=== PATIENT | female | born 1950 | race Two or more races ===

== ENCOUNTER 2018-01-06 07:30 | Outpatient (CLI) | payer OTHER | END 2018-01-06 07:52 | disposition home or self-care (01) | LOC: NUCLEAR 07:30 → EDBD 07:30 → NUCLEAR 07:52 | DX: I25.10 Atherosclerotic heart disease of native coronary artery without angina pectoris (principal) | CPT/HCPCS: 78452; 93017; A9500; J0153 ==

== ENCOUNTER 2018-03-05 16:28 | Inpatient (IN) | payer OTHER ==
[~2018-03-05] VITALS: Ht 162.6 cm; Wt 108.9 kg
[2018-03-05] MEDS ORDERED: COZAAR50 MG PO (16:39)
[2018-03-05] MEDS ORDERED: ATENOLOL100 MG PO (16:39)
[2018-03-05] MEDS ORDERED: GLIMEPIRIDE4 MG PO (16:40)
[2018-03-05] MEDS ORDERED: ISOSORBIDE DINI30 MG PO (16:40)
== END 2018-03-07 03:50 | disposition designated cancer center or children's hospital (05) | DRG 280 ==
LOC: ER 16:28 → ICU-2 03-06 12:13
PROC: B246ZZZ Ultrasonography of Right and Left Heart (ICD-10-PCS; principal; 2018-03-06)
DX: I21.4 Non-ST elevation (NSTEMI) myocardial infarction (principal); I50.33 Acute on chronic diastolic (congestive) heart failure; E11.42 Type 2 diabetes mellitus with diabetic polyneuropathy; E11.65 Type 2 diabetes mellitus with hyperglycemia; I11.0 Hypertensive heart disease with heart failure

== ENCOUNTER 2018-04-14 08:44 | Outpatient (CLI) | payer OTHER ==
[~2018-04-14 08:44] MED LIST: ATENOLOL100 MG PO; COZAAR50 MG PO; GLIMEPIRIDE4 MG PO; ISOSORBIDE DINI30 MG PO
== END 2018-04-14 08:52 | disposition home or self-care (01) ==
LOC: MAMO-SONO 08:44 → EDBD 08:44 → MAMO-SONO 08:45
DX: Z12.31 Encounter for screening mammogram for malignant neoplasm of breast (principal); Z87.898 Personal history of other specified conditions; N60.11 Diffuse cystic mastopathy of right breast; N60.12 Diffuse cystic mastopathy of left breast

== ENCOUNTER 2019-07-29 10:11 | Outpatient (CLI) | payer OTHER | END 2019-07-29 10:12 | disposition home or self-care (01) | LOC: RAD 10:11 | DX: M14.86 Arthropathies in other specified diseases classified elsewhere, knee (principal) ==

== ENCOUNTER 2023-02-26 15:15 | Emergency (ER) | payer OTHER ==
[~2023-02-26] VITALS: Ht 162.6 cm; Wt 111.6 kg
[2023-02-26] MEDS ORDERED: JANUMET 50-5001 EACH PO (15:59)
[2023-02-26] MEDS ORDERED: ATORVASTATIN CA40 MG PO (16:00)
[2023-02-26] MEDS ORDERED: NEURONTIN600 M1 PO (16:00)
[2023-02-26] MEDS ORDERED: GLUMETZA500 MG PO (16:00)
== END 2023-02-26 20:32 | disposition home or self-care (01) ==
LOC: ER 15:15
DX: L97.509 Non-pressure chronic ulcer of other part of unspecified foot with unspecified severity (principal); L03.116 Cellulitis of left lower limb; G62.9 Polyneuropathy, unspecified; E11.9 Type 2 diabetes mellitus without complications; Z79.84 Long term (current) use of oral hypoglycemic drugs; I10 Essential (primary) hypertension; I50.9 Heart failure, unspecified; Z20.822 Contact with and (suspected) exposure to COVID-19

== ENCOUNTER 2023-04-10 09:31 | Inpatient (IN) | payer OTHER ==
[~2023-04-10] VITALS: Ht 157.5 cm; Wt 113.4 kg
[~2023-04-10 09:31] MED LIST changes: +ATORVASTATIN CA40 MG PO; +GLUMETZA500 MG PO; +JANUMET 50-5001 EACH PO; +NEURONTIN600 M1 PO
[2023-04-10] MEDS ORDERED: FUROSEMIDE20 MG PO (10:24)
[2023-04-22] MEDS ORDERED: INTESTINEX680 M1 PO (17:47)
== END 2023-04-22 18:06 | disposition home or self-care (01) | DRG 603 ==
LOC: ER 09:31 → MEDI 18:42
PROVIDERS: ADMIT Internal Medicine; ATTEND Internal Medicine
PROC: B54DZZZ Ultrasonography of Bilateral Lower Extremity Veins (ICD-10-PCS; principal; 2023-04-10)
PROC: 02HV33Z Insertion of Infusion Device into Superior Vena Cava, Percutaneous Approach (ICD-10-PCS; 2023-04-11)
PROC: B24BYZZ Ultrasonography of Heart with Aorta using Other Contrast (ICD-10-PCS; 2023-04-18)
DX: L03.115 Cellulitis of right lower limb (principal); I50.30 Unspecified diastolic (congestive) heart failure; L97.919 Non-pressure chronic ulcer of unspecified part of right lower leg with unspecified severity; B49 Unspecified mycosis; Z68.42 Body mass index [BMI] 45.0-49.9, adult; D64.9 Anemia, unspecified; E11.65 Type 2 diabetes mellitus with hyperglycemia; G47.33 Obstructive sleep apnea (adult) (pediatric); I83.019 Varicose veins of right lower extremity with ulcer of unspecified site; L97.509 Non-pressure chronic ulcer of other part of unspecified foot with unspecified severity; G62.9 Polyneuropathy, unspecified; E11.22 Type 2 diabetes mellitus with diabetic chronic kidney disease; N18.2 Chronic kidney disease, stage 2 (mild); J44.9 Chronic obstructive pulmonary disease, unspecified; E66.01 Morbid (severe) obesity due to excess calories; B95.2 Enterococcus as the cause of diseases classified elsewhere; Z79.4 Long term (current) use of insulin

== ENCOUNTER 2023-11-05 10:59 | Emergency (ER) | payer OTHER ==
[~2023-11-05] VITALS: Ht 162.6 cm; Wt 104.3 kg
[~2023-11-05 10:59] MED LIST changes: +FUROSEMIDE20 MG PO; +INTESTINEX680 M1 PO
[2023-11-05] MEDS ORDERED: NORFLEX100MG PO (12:10)
[2023-11-05] MEDS ORDERED: DICLOFENAC SODI75 MG PO (12:10)
== END 2023-11-05 12:41 | disposition home or self-care (01) ==
LOC: ER 10:59
DX: M54.9 Dorsalgia, unspecified (principal); M43.16 Spondylolisthesis, lumbar region
CPT/HCPCS: 72070; 72100; 96372; 99284; J1885; J2360

== ENCOUNTER 2023-12-18 18:32 | Emergency (ER) | payer OTHER ==
[~2023-12-18] VITALS: Ht 162.6 cm; Wt 101.6 kg
[~2023-12-18 18:32] MED LIST changes: +DICLOFENAC SODI75 MG PO; +NORFLEX100MG PO
== END 2023-12-18 23:04 | disposition home or self-care (01) ==
LOC: ER 18:34
DX: S01.81XA Laceration without foreign body of other part of head, initial encounter (principal); W18.39XA Other fall on same level, initial encounter; Y93.89 Activity, other specified; Y92.018 Other place in single-family (private) house as the place of occurrence of the external cause; E11.9 Type 2 diabetes mellitus without complications; Z79.84 Long term (current) use of oral hypoglycemic drugs; I10 Essential (primary) hypertension

== ENCOUNTER 2024-01-31 11:36 | Inpatient (IN) | payer OTHER ==
[~2024-01-31] VITALS: Ht 162.6 cm; Wt 104.3 kg
[2024-01-31] MEDS ORDERED: ANTI-ITCH28 G1 TP (12:21)
--- NOTE | 2024-01-31 12:22 | NUR ---
PTE FEMENINA DE 73 YRS LLEGA EN AMBULANCIA NO RESPONDE AL MOMENTO. FAMILIAR ALEGA QUE LA ENCONTRARON EN EL THAIS DESMALLADA SIN RESPONDER. SE LE LINNETTE S/V Y SE ACOMODE NE UNIDAD DE CRITICO CONCETADA A MONITOR CARDIACO Y CANULA NASAL. SE LE PRESENTA PTE A LA CUAL ORDENA TRATAMEINTO.
[2024-01-31 12:33] LABS: HEMATOCRIT 34.3 % (36.0-45.00); HEMOGLOBIN 11.2 g/dL (12.0-15.00); MEAN CELL VOLUME 92.5 fL (80.00-100.00); MEAN CORPUSCULAR HEMOGLOBIN 30.2 pg (27.00-32.0); MEAN CORPUSCULAR HGB CONC 32.7 g/dl (32.0-36.0); PLATELET COUNT 263 K/uL (150-450); RED BLOOD COUNT 3.71 M/uL (4.00-6.00); RED CELL DISTRIBUTION WIDTH 16.5 % (11.5-14.5)
[2024-01-31 12:44] LABS: ABG PH 7.445 (7.35-7.45); ABG PO2 115.9 mmHg (80-100); ABG pCO2 36.5 mmHg (35-45); BASE EXCESS 0.8 mmol/l; BICARBONATE 24.5 mmol/l (23-25); SaO2 98.7 %; Tco2 25.6 mmol/l; allen test SATISFACTORY; puncture site RADIAL LEFT
[2024-01-31 12:45] LABS: o2 21 %
--- NOTE | 2024-01-31 12:47 | NUR ---
SE RECIBE PACIENTE EN STORM #3 AREA DE ICU 2 A LAS 12:10PM, MIS PENA RN RECIBE LA MISMA CONECTA A MONITOR Y LE COLOCA CANULA NASAL. ESTA JOEL MUIESTRAS Y CANALIZA EN MANO DERECHA CON MEDIDAS ASEPTICAS CORRESPONDIENTES. ESTA ORIENTA A FAMILIAR SOBRE TRATAMIENTO ANDRIA ORDEN MEDICA. REFIERE ENTENDER. SE CANALIZA EN BRAZO IZQ PARA DOBLE ACCESO VENOSO. SE INSERTA SONDA URAINA CON MEDIDAS ASEPTICAS Y SE JOEL MUESTRA DE U/A, PACIENTE DRENADO ORINA AMARILLO JERRI POR SANTANA PATENTE A GRAVEDAD. PERSONAL DE TERAPIA RESPIRATORIA REALIZA ABG. BARANDAS ELEVADAS POR MARTIN SEGURIDAD. SE MONITOREA POR CAMBIOS SIGNIFICATIVOS.
[2024-01-31 12:49] LABS: INR 0.99; PARTIAL THROMBOPLASTIN TIME 24.9 SECONDS (22.0-34.0); PROTHROMBIN TIME 10.4 SECONDS (9.0-11.5)
[2024-01-31 13:14] LABS: PH,URINE 5.5 (5.0-8.0); URINE APPEARANCE Clear; URINE BILIRRUBIN Negative (NEGATIVE); URINE BLOOD Negative; URINE COLOR Yellow; URINE GLUCOSE Negative (NEGATIVE); URINE LEUKOCYTE Small; URINE NITRATE Negative; URINE PROTEIN 30 (NEGATIVE); URINE UROBILINOGEN 0.2 E.U./dl
[2024-01-31 13:18] LABS: URINE BACTERIA 279.7 uL (0.0-1933); URINE EPITHELIAL CELLS 36.1 uL (0.0-38.8); URINE RBC 13.6 uL (0.0-20.8); URINE WBC 66.1 uL (0.0-23.2)
[2024-01-31 13:46] LABS: BILIRUBIN TOTAL 0.35 mg/dL (0.3-1.2); CALCIUM 9.5 mg/dL (8.5-10.1); CREATININE SERUM 1.08 mg/dL (0.55-1.02); GFR 49.87; GLOBULINA 3.8 G/DL (2.4-3.5); MAGNESIUM 2.1 mg/dL (1.8-2.4); POTASSIUM 4.15 mEq/L (3.5-5.1); TOTAL PROTEIN 6.8 gm/dL (6.4-8.2)
[2024-01-31 14:06] LABS: URINE YEAST NEGATIVE /hpf
--- NOTE | 2024-01-31 15:00 | NUR ---
SE RECIBE A PTE ALERTA Y ORIENTADA EN PERSONA EN CAMA BAJA Y BARANDAS ELEVADAS CONECTADA A MONITOR CARDIACO. SE OBSERVA CANULA NASAL A 3LT/HR. SE OBSERVAN EXTREMIDADES SUPERIOIRES CON HEMATOMAS DEBIDO A SER PINCHADA PARA INTENTAR CANALIZARLA. SE OBSERVA EN MANO IZQUIERDA SALYN LOCK #20 PATENTE EDIL DE EDEMA Y ERITEMA. SE OBSERVA ABDOMEN DISTENDIDO AL TACTO. SE OBSERVA SANTANA CATETHER PATENTE BAJANDO A GRAVEDAD. SE OBSERVAN EXTREMIDADES INFERIOIRES LIBRES DE EDEMA Y ERITEMA.
[2024-01-31] MEDS ORDERED: 0.9 % SODIUM CHLORIDE 1,000 ML IV SCH (17:15)
[2024-01-31] MEDS ORDERED: MORPHINE SULFATE 4 MG/ML CARTRIDGE IV ONE (17:15)
[2024-01-31] MEDS ORDERED: CLOPIDOGREL BISULFATE 75 MG TABLET PO SCH (17:19)
[2024-01-31] MEDS ORDERED: LOSARTAN POTASSIUM 50 MG TABLET PO SCH (17:19)
[2024-01-31] MEDS ORDERED: ATORVASTATIN CALCIUM 40 MG TABLET PO SCH (17:19)
[2024-01-31] MEDS ORDERED: INSULIN LISPRO 1,000 UNIT/10 ML UNITS SUBCUTANEO PRN (17:30)
[2024-01-31] MEDS ORDERED: DEXTROSE 50 % IN WATER 0.5 G/ML DISP.SYRIN IV PRN (17:30)
[2024-01-31] MEDS ORDERED: PIPERACILLIN/TAZOBACTAM SODIUM 3.375 GM in DEXTROSE 5 % IN WATER 100 ML IV SCH (18:00)
[2024-02-01] MEDS ORDERED: DIPHENHYDRAMINE HCL 50 MG/ML VIAL 1ML IV STA (00:19)
[2024-02-01 07:41] LABS: CHOL HDL RATIO 3.9 (0-5.0); TSH 2.63 uIU/mL (0.358-3.74)
[2024-02-01] MEDS ORDERED: ISOSORBIDE MONONITRATE 30 MG TABLET PO SCH (09:00)
[2024-02-01] MEDS ORDERED: FUROsemide 20 MG/2 ML VIAL IV SCH (09:00)
[2024-02-01] MEDS ORDERED: TRAMADOL HCL 50 MG TABLET PO PRN (10:30)
[2024-02-01] MEDS ORDERED: CLOTRIMAZOLE 10 MG TROCHE MM SCH (13:00)
[2024-02-01] MEDS ORDERED: GABAPENTIN 600 MG TABLET PO SCH (17:00)
[2024-02-02] MEDS ORDERED: LACTOBACILLUS ACIDOPHILUS 1 CAP CAP PO SCH (13:31)
[2024-02-03 05:42] LABS: HEMATOCRIT 32.5 % (36.0-45.00); MEAN CELL VOLUME 93.9 fL (80.00-100.00); MEAN CORPUSCULAR HEMOGLOBIN 31.2 pg (27.00-32.0); MEAN CORPUSCULAR HGB CONC 33.3 g/dl (32.0-36.0); PLATELET COUNT 214 K/uL (150-450); RED BLOOD COUNT 3.46 M/uL (4.00-6.00); RED CELL DISTRIBUTION WIDTH 16.4 % (11.5-14.5)
[2024-02-03 05:45] LABS: HEMOGLOBIN 10.8 g/dL (12.0-15.00)
[2024-02-03 05:58] LABS: ERYTHROCYTE SEDIMENTATION RATE 106 mm/hr
[2024-02-03 06:07] LABS: ALBUMIN 2.4 gm/dL (3.4-5.0); BILIRUBIN TOTAL 0.6 mg/dL (0.3-1.2); CALCIUM 8.6 mg/dL (8.5-10.1); CREATININE SERUM 1.28 mg/dL (0.55-1.02); GFR 40.99; GLOBULINA 3.4 G/DL (2.4-3.5); POTASSIUM 3.28 mEq/L (3.5-5.1); TOTAL PROTEIN 5.8 gm/dL (6.4-8.2)
[2024-02-03 06:27] LABS: C-REACTIVE PROTEIN 10.1 MG/DL (0.00-0.29)
[2024-02-03] MEDS ORDERED: POTASSIUM CHLORIDE IN WATER 100 ML IV ONE (08:15)
[2024-02-03] MEDS ORDERED: POTASSIUM CHLORIDE 10 MEQ CAPSULE PO SCH (18:45)
[2024-02-04] MEDS ORDERED: ORPHENADRINE CITRATE 100 MG TABLET PO PRN (23:00)
[2024-02-06 08:15] LABS: HEMATOCRIT 32.7 % (36.0-45.00); HEMOGLOBIN 10.9 g/dL (12.0-15.00); MEAN CELL VOLUME 92.7 fL (80.00-100.00); MEAN CORPUSCULAR HEMOGLOBIN 30.7 pg (27.00-32.0); MEAN CORPUSCULAR HGB CONC 33.2 g/dl (32.0-36.0); PLATELET COUNT 216 K/uL (150-450); RED BLOOD COUNT 3.53 M/uL (4.00-6.00); RED CELL DISTRIBUTION WIDTH 16.5 % (11.5-14.5)
[2024-02-06] MEDS ORDERED: CLOPIDOGREL BIS75 MG PO (17:03)
[2024-02-06] MEDS ORDERED: ISOSORBIDE MONO30 MG PO (17:03)
[2024-02-06] MEDS ORDERED: NEURONTIN600 MG PO (17:03)
[2024-02-06] MEDS ORDERED: LASIX20 MG PO (17:03)
[2024-02-06] MEDS ORDERED: COZAAR100 MG PO (17:03)
[2024-02-06] MEDS ORDERED: LIPITOR40 M1 PO (17:03)
== END 2024-02-06 17:42 | disposition home or self-care (01) | DRG 64 ==
LOC: ER 11:36 → MEDI 18:15
PROVIDERS: General Practice; Internal Medicine Infectious Disease; ADMIT Internal Medicine; ATTEND Internal Medicine
PROC: 4A12X4Z Monitoring of Cardiac Electrical Activity, External Approach (ICD-10-PCS; principal; 2024-01-31)
PROC: BW24ZZZ Computerized Tomography (CT Scan) of Chest and Abdomen (ICD-10-PCS; 2024-01-31)
PROC: B020ZZZ Computerized Tomography (CT Scan) of Brain (ICD-10-PCS; 2024-01-31)
PROC: B030ZZZ Magnetic Resonance Imaging (MRI) of Brain (ICD-10-PCS; 2024-01-31)
PROC: BW21ZZZ Computerized Tomography (CT Scan) of Abdomen and Pelvis (ICD-10-PCS; 2024-01-31)
PROC: B24BYZZ Ultrasonography of Heart with Aorta using Other Contrast (ICD-10-PCS; 2024-01-31)
PROC: B345ZZZ Ultrasonography of Bilateral Common Carotid Arteries (ICD-10-PCS; 2024-01-31)
PROC: B54DZZZ Ultrasonography of Bilateral Lower Extremity Veins (ICD-10-PCS; 2024-02-03)
DX: I63.9 Cerebral infarction, unspecified (principal); J69.0 Pneumonitis due to inhalation of food and vomit; G45.9 Transient cerebral ischemic attack, unspecified; R65.10 Systemic inflammatory response syndrome (SIRS) of non-infectious origin without acute organ dysfunction; Z68.42 Body mass index [BMI] 45.0-49.9, adult; G47.33 Obstructive sleep apnea (adult) (pediatric); R41.82 Altered mental status, unspecified; E11.9 Type 2 diabetes mellitus without complications; Z79.4 Long term (current) use of insulin; E66.01 Morbid (severe) obesity due to excess calories
CPT/HCPCS: 70544

== ENCOUNTER 2024-05-18 02:37 | Inpatient (IN) | payer OTHER ==
[~2024-05-18] VITALS: Ht 162.6 cm; Wt 136.1 kg
[~2024-05-18 02:37] MED LIST changes: +ANTI-ITCH28 G1 TP; +CLOPIDOGREL BIS75 MG PO; +COZAAR100 MG PO; +ISOSORBIDE MONO30 MG PO; +LASIX20 MG PO; +LIPITOR40 M1 PO; +NEURONTIN600 MG PO
[2024-05-18] MEDS ORDERED: FUROsemide 40 MG/4 ML VIAL IV STA (02:59)
[2024-05-18] MEDS ORDERED: NITROGLYCERIN 0.6 MG/HR PATCH.TD24 TD STA (03:06)
[2024-05-18] MEDS ORDERED: NITROGLYCERIN 50MG IN NSS (KIT INCLUYE LINEA) IV STA (03:21)
[2024-05-18 03:43] LABS: HEMATOCRIT 32.2 % (36.0-45.00); MEAN CELL VOLUME 97.8 fL (80.00-100.00); MEAN CORPUSCULAR HGB CONC 32.4 g/dl (32.0-36.0); PLATELET COUNT 231 K/uL (150-450); RED BLOOD COUNT 3.29 M/uL (4.00-6.00); RED CELL DISTRIBUTION WIDTH 17.1 % (11.5-14.5)
[2024-05-18 03:45] LABS: HEMOGLOBIN 10.4 g/dL (12.0-15.00); MEAN CORPUSCULAR HEMOGLOBIN 31.6 pg (27.00-32.0)
[2024-05-18 03:58] LABS: ALBUMIN 2.7 gm/dL (3.4-5.0); BILIRUBIN TOTAL 0.18 mg/dL (0.3-1.2); CALCIUM 9.4 mg/dL (8.5-10.1); CREATININE SERUM 1.82 mg/dL (0.55-1.02); GFR 27.31; GLOBULINA 4.1 G/DL (2.4-3.5); POTASSIUM 5.54 mEq/L (3.5-5.1); TOTAL PROTEIN 6.8 gm/dL (6.4-8.2)
[2024-05-18] MEDS ORDERED: IPRATROPIUM/ALBUTEROL SULFATE 3 ML AMPUL.NEB IH SCH (05:00)
[2024-05-18 05:05] LABS: URINE APPEARANCE Clear; URINE BILIRRUBIN Negative (NEGATIVE); URINE BLOOD Negative; URINE COLOR Yellow; URINE LEUKOCYTE Negative; URINE NITRATE Negative; URINE PROTEIN Negative (NEGATIVE); URINE UROBILINOGEN 0.2 E.U./dl
[2024-05-18 05:06] LABS: URINE EPITHELIAL CELLS 6.7 uL (0.0-38.8)
[2024-05-18 05:28] LABS: URINE GLUCOSE >=1000 MG/DL (NEGATIVE); URINE RBC 1.2 uL (0.0-20.8); URINE WBC 1.2 uL (0.0-23.2)
[2024-05-18 06:36] LABS: ABG PH 7.422 (7.35-7.45); ABG PO2 72.8 mmHg (80-100); ABG pCO2 34.2 mmHg (35-45); BASE EXCESS -1.8 mmol/l; BICARBONATE 21.8 mmol/l (23-25); SaO2 94.7 %; Tco2 22.9 mmol/l; allen test SATISFACTORY; puncture site RADIAL LEFT
[2024-05-18 06:37] LABS: o2 21 %
[2024-05-18] MEDS ORDERED: CEFTRIAXONE SODIUM 2,000 MG VIAL IV ONE (09:15)
[2024-05-18] MEDS ORDERED: IPRATROPIUM/ALBUTEROL SULFATE 3 ML AMPUL.NEB IH ONE ×2 (12:28→16:51)
[2024-05-18] MEDS ORDERED: FUROsemide 20 MG/2 ML VIAL IV SCH (18:28)
[2024-05-18] MEDS ORDERED: SODIUM POLYSTYRENE SULFONATE 15 G/4 TSP TSP PO SCH (18:28)
[2024-05-18] MEDS ORDERED: ATORVASTATIN CALCIUM 40 MG TABLET PO SCH (18:29)
[2024-05-18] MEDS ORDERED: CLOPIDOGREL BISULFATE 75 MG TABLET PO SCH (18:29)
[2024-05-18] MEDS ORDERED: ASPIRIN 81 MG TAB.CHEW PO SCH (18:29)
[2024-05-18] MEDS ORDERED: DEXTROSE 50 % IN WATER 0.5 G/ML DISP.SYRIN IV PRN (18:30)
[2024-05-18] MEDS ORDERED: ACETAMINOPHEN 500 MG GEL..CAP PO PRN (18:30)
[2024-05-18] MEDS ORDERED: INSULIN LISPRO 1,000 UNIT/10 ML UNITS SUBCUTANEO PRN (18:30)
[2024-05-18] MEDS ORDERED: DEXTROSE 50 % IN WATER 0.5 G/ML VIAL IV PRN (18:45)
[2024-05-18] MEDS ORDERED: CLOPIDOGREL BISULFATE 75 MG TABLET PO ONE (18:54)
[2024-05-18] MEDS ORDERED: FUROsemide 20 MG/2 ML VIAL ONE (18:54)
[2024-05-18] MEDS ORDERED: CEFEPIME HCL 2,000 MG VIAL ONE (18:55)
[2024-05-18 19:39] LABS: INR 0.98; PARTIAL THROMBOPLASTIN TIME 22.9 SECONDS (22.0-34.0); PROTHROMBIN TIME 10.3 SECONDS (9.0-11.5)
[2024-05-18] MEDS ORDERED: CEFEPIME HCL 1,000 MG in 0.9 % SODIUM CHLORIDE 50 ML IV SCH (21:00)
[2024-05-19] MEDS ORDERED: IPRATROPIUM BROMIDE 0.5 MG/2.5 ML AMPUL.NEB IH SCH (01:00)
[2024-05-19] MEDS ORDERED: SODIUM POLYSTYRENE SULFONATE 15 G/4 TSP TSP PO SCH (09:00)
[2024-05-19] MEDS ORDERED: ENOXAPARIN SODIUM 30 MG/0.3 ML SYRINGE SUBCUTANEO SCH (09:00)
[2024-05-19] MEDS ORDERED: FAMOTIDINE/PF 20 MG in 0.9 % SODIUM CHLORIDE 8 ML IV PUSH SCH (09:00)
[2024-05-19] MEDS ORDERED: ISOSORBIDE MONONITRATE 30 MG TABLET PO SCH (09:00)
[2024-05-19] MEDS ORDERED: INSULIN GLARGINE,HUM.REC.ANLOG 1,000 UNITS/10 ML UNITS SUBCUTANEO SCH (09:00)
[2024-05-19] MEDS ORDERED: INSULIN LISPRO 1,000 UNIT/10 ML UNITS SUBCUTANEO SCH (12:00)
[2024-05-19 15:46] LABS: URINE APPEARANCE Clear; URINE BILIRRUBIN Negative (NEGATIVE); URINE BLOOD Moderate; URINE COLOR Yellow; URINE LEUKOCYTE Negative; URINE NITRATE Negative; URINE PROTEIN Negative (NEGATIVE); URINE UROBILINOGEN 0.2 E.U./dl
[2024-05-19 15:47] LABS: URINE BACTERIA 196.5 uL (0.0-1933); URINE EPITHELIAL CELLS 32.1 uL (0.0-38.8); URINE RBC 56.1 uL (0.0-20.8); URINE WBC 40.9 uL (0.0-23.2)
[2024-05-19 16:03] LABS: URINE GLUCOSE >=1000 MG/DL (NEGATIVE)
[2024-05-19] MEDS ORDERED: LINEZOLID 600 MG TABLET PO SCH (17:00)
[2024-05-19] MEDS ORDERED: SOD FERRIC GLUC COMPLX/SUCROSE 62.5 MG in 0.9 % SODIUM CHLORIDE 50 ML IV SCH (17:00)
[2024-05-20 10:40] LABS: HEMATOCRIT 31.7 % (36.0-45.00); HEMOGLOBIN 10.4 g/dL (12.0-15.00); MEAN CELL VOLUME 97.3 fL (80.00-100.00); MEAN CORPUSCULAR HEMOGLOBIN 31.9 pg (27.00-32.0); MEAN CORPUSCULAR HGB CONC 32.8 g/dl (32.0-36.0); PLATELET COUNT 225 K/uL (150-450); RED BLOOD COUNT 3.26 M/uL (4.00-6.00); RED CELL DISTRIBUTION WIDTH 17.6 % (11.5-14.5)
[2024-05-20] MEDS ORDERED: KETOROLAC TROMETHAMINE 30 MG VIAL IV PRN (11:00)
[2024-05-20 11:14] LABS: ALBUMIN 2.5 gm/dL (3.4-5.0); BILIRUBIN TOTAL 0.39 mg/dL (0.3-1.2); CALCIUM 9.3 mg/dL (8.5-10.1); CREATININE SERUM 1.21 mg/dL (0.55-1.02); GFR 43.74; GLOBULINA 4.1 G/DL (2.4-3.5); PHOSPHOROUS 3.8 mg/dL (2.5-4.9); POTASSIUM 4.25 mEq/L (3.5-5.1); TOTAL PROTEIN 6.6 gm/dL (6.4-8.2)
[2024-05-20 11:20] LABS: C-REACTIVE PROTEIN 8.64 MG/DL (0.00-0.29)
[2024-05-20] MEDS ORDERED: ZINC OXIDE 30 GM TUBE TOP SCH (17:00)
[2024-05-20] MEDS ORDERED: GABAPENTIN 300 MG CAPSULE PO SCH (21:00)
[2024-05-20] MEDS ORDERED: GABAPENTIN 600 MG TABLET PO SCH (23:52)
[2024-05-21] MEDS ORDERED: TRAMADOL HCL 50 MG TABLET PO PRN (00:30)
[2024-05-21] MEDS ORDERED: CLOTRIMAZOLE 10 MG TROCHE MM SCH (17:45)
[2024-05-22] MEDS ORDERED: INSULIN GLARGINE,HUM.REC.ANLOG 1,000 UNITS/10 ML UNITS SUBCUTANEO SCH (09:00)
[2024-05-22] MEDS ORDERED: FAMOtidine 20 MG TABLET PO SCH (09:00)
[2024-05-23 08:55] LABS: HEMATOCRIT 30.3 % (36.0-45.00); MEAN CELL VOLUME 96.9 fL (80.00-100.00); MEAN CORPUSCULAR HEMOGLOBIN 32.1 pg (27.00-32.0); MEAN CORPUSCULAR HGB CONC 33.1 g/dl (32.0-36.0); PLATELET COUNT 249 K/uL (150-450); RED BLOOD COUNT 3.13 M/uL (4.00-6.00); RED CELL DISTRIBUTION WIDTH 17.8 % (11.5-14.5)
[2024-05-23 09:17] LABS: ALBUMIN 2.4 gm/dL (3.4-5.0); BILIRUBIN TOTAL 0.47 mg/dL (0.3-1.2); CALCIUM 9.7 mg/dL (8.5-10.1); CREATININE SERUM 1.51 mg/dL (0.55-1.02); GFR 33.87; GLOBULINA 4.1 G/DL (2.4-3.5); POTASSIUM 3.68 mEq/L (3.5-5.1); TOTAL PROTEIN 6.5 gm/dL (6.4-8.2)
[2024-05-25] MEDS ORDERED: INSULIN GLARGINE,HUM.REC.ANLOG 1,000 UNITS/10 ML UNITS SUBCUTANEO SCH (09:00)
[2024-05-25] MEDS ORDERED: FUROsemide 20 MG/2 ML VIAL IV SCH (09:00)
[2024-05-25] MEDS ORDERED: CIPRO500 MG PO (17:42)
[2024-05-25] MEDS ORDERED: LINEZOLID600 MG PO (17:42)
[2024-05-25] MEDS ORDERED: CLOTRIMAZOLE10 MG MM (17:44)
== END 2024-05-25 20:35 | disposition home or self-care (01) | DRG 854 ==
LOC: ER 02:37 → MEDJ 19:11
PROVIDERS: General Practice; Internal Medicine Infectious Disease; ADMIT Internal Medicine; ATTEND Internal Medicine
PROC: 4A12X4Z Monitoring of Cardiac Electrical Activity, External Approach (ICD-10-PCS; 2024-05-18)
PROC: B24BZZZ Ultrasonography of Heart with Aorta (ICD-10-PCS; 2024-05-18)
PROC: 0JDP0ZZ Extraction of Left Lower Leg Subcutaneous Tissue and Fascia, Open Approach (ICD-10-PCS; 2024-05-20)
PROC: 02HV33Z Insertion of Infusion Device into Superior Vena Cava, Percutaneous Approach (ICD-10-PCS; 2024-05-23)
PROC: 0JDP0ZZ Extraction of Left Lower Leg Subcutaneous Tissue and Fascia, Open Approach (ICD-10-PCS; principal; 2024-05-25)
DX: A41.9 Sepsis, unspecified organism (principal); I13.0 Hypertensive heart and chronic kidney disease with heart failure and stage 1 through stage 4 chronic kidney disease, or unspecified chronic kidney disease; N17.9 Acute kidney failure, unspecified; L97.929 Non-pressure chronic ulcer of unspecified part of left lower leg with unspecified severity; I50.30 Unspecified diastolic (congestive) heart failure; L03.116 Cellulitis of left lower limb; E11.622 Type 2 diabetes mellitus with other skin ulcer; E11.22 Type 2 diabetes mellitus with diabetic chronic kidney disease; E11.65 Type 2 diabetes mellitus with hyperglycemia; Z79.4 Long term (current) use of insulin; B96.5 Pseudomonas (aeruginosa) (mallei) (pseudomallei) as the cause of diseases classified elsewhere; B95.2 Enterococcus as the cause of diseases classified elsewhere; B95.61 Methicillin susceptible Staphylococcus aureus infection as the cause of diseases classified elsewhere; B96.89 Other specified bacterial agents as the cause of diseases classified elsewhere; E66.01 Morbid (severe) obesity due to excess calories; D63.1 Anemia in chronic kidney disease; N18.2 Chronic kidney disease, stage 2 (mild); E78.5 Hyperlipidemia, unspecified